=== PATIENT | female | born 1970 | race African-American/Black ===

== ENCOUNTER 2020-12-05 19:16 | Emergency (ER) | payer MEDICAID, OTHER ==
[~2020-12-05] VITALS: Ht 172.7 cm; Wt 86.2 kg
[2020-12-05 19:37] VITALS: BP 155/98
[2020-12-05] MEDS ORDERED: TRAM50TA2 PO (20:30)
== END 2020-12-05 21:17 | disposition home or self-care (01) ==
LOC: ER 19:16
DX: M25.562 Pain in left knee (principal); Z88.6 Allergy status to analgesic agent
CPT/HCPCS: 73564-TC